=== PATIENT | female | born 1990 | race American Indian/Alaskan Native ===

== ENCOUNTER 2016-08-23 00:11 | Emergency (ER) | payer OTHER ==
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
[2016-08-23] MEDS ORDERED: FLEXERIL PO ONE (05:55)
[2016-08-23] MEDS ORDERED: MOTRIN PO ONE (05:55)
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
[2016-08-23 06:38] VITALS: BP 110/62
== END 2016-08-23 06:41 | disposition home or self-care (01) ==
LOC: ED 00:11
DX: M79.1 Myalgia (principal); V49.49XA Driver injured in collision with other motor vehicles in traffic accident, initial encounter; Y92.488 Other paved roadways as the place of occurrence of the external cause; Y93.89 Activity, other specified; Y99.8 Other external cause status
CPT/HCPCS: 70450; 81025